=== PATIENT | female | born 1960 | race Caucasian/White ===

== ENCOUNTER 2017-01-04 10:56 | Day surgery (SDC) | payer BC, OTHER ==
[2017-01-02 17:27] VITALS: BMI 24.2
[2017-01-04] MEDS ORDERED: MIDAZOLAM HCL 2 MG/2 ML SINGLE DOSE VIAL ONE (12:19)
[2017-01-04] MEDS ORDERED: PROPOFOL 20 ML ONE (12:19)
[2017-01-04 13:40] VITALS: TEMP 98.2
[2017-01-04 14:09] VITALS: BP 120/74; PULSE 68
--- NOTE | 2017-01-05 10:24 | OP ---
DATE OF OPERATION: 01/04/2017 PREOPERATIVE DIAGNOSIS: Right carpal tunnel syndrome. POSTOPERATIVE DIAGNOSIS: Right carpal tunnel syndrome. OPERATIVE PROCEDURE: Right carpal tunnel release. SURGEON: Bharathi Butterfield MD ANESTHESIA: Local with sedation. COMPLICATIONS: None. ESTIMATED BLOOD LOSS: Minimal. INDICATIONS FOR PROCEDURE: The patient is a 56-year-old female with the above findings, indicated for operative treatment. The risks, benefits, and alternatives were discussed with the patient at length, and proper informed consent was obtained. Of note, she did have finger stiffness prior to the procedure. PROCEDURE: After proper identification of the patient and the correct operative site, the patient was brought to the operating room and placed supine on the operating room table with prominences well padded. Sedation and local anesthesia were given with 2% lidocaine. Right upper extremity was prepped and draped in the usual sterile fashion. Well-padded tourniquet was placed with a sterile prep, Esmarch bandage to exsanguinate the right upper extremity. Tourniquet was inflated to 250 mmHg. A longitudinal incision was made over the proximal aspect of the palm. Incision was taken sharply through the skin with blunt and sharp dissection through subcutaneous tissues. Palmar fascia was divided longitudinally. The transverse carpal ligament along with the distal portion of antebrachial fascia was divided longitudinal under direct visualization with loupe magnification. This provided complete release of the median nerve at the wrist. Of note, the median nerve was found to be severely compressed with hourglass configuration beneath the transcarpal ligament. There was a hyperemic response after release. Wound was irrigated with copious amounts of normal saline and repaired with 5-0 nylon suture. Sterile dressings were applied. The patient was reversed from anesthesia and brought to the recovery room in stable condition. She tolerated the procedure well. BHARATHI BUTTERFIELD M.D. [id number]
== END 2017-01-04 13:50 | disposition home or self-care (01) ==
LOC: FASU 10:56
PROVIDERS: ATTEND Orthopaedic Surgery Hand Surgery
PROC: 01N50ZZ Release Median Nerve, Open Approach (ICD-10-PCS; principal; 2017-01-04 13:00)
DX: G56.01 Carpal tunnel syndrome, right upper limb (principal)